=== PATIENT | female | born 1960 | race Two or more races ===

== ENCOUNTER 2019-08-02 12:10 | Inpatient (IN) | payer OTHER ==
[~2019-08-02 12:10] MED LIST: COZAAR100 MG PO; JENTADUETO 2.51 EACH PO; XANAX1 MG PO
[2019-08-03] MEDS ORDERED: HYDROCHLOROTHIA25 MG PO (07:59)
[2019-08-03] MEDS ORDERED: TRINTELLIX20 MG PO (07:59)
[2019-08-03] MEDS ORDERED: TRINTELLIX10 MG PO (08:04)
[2019-08-03] MEDS ORDERED: IBUPROFEN800 MG PO (09:29)
[2019-08-03] MEDS ORDERED: CODE1TAB37 PO (09:30)
== END 2019-08-03 10:28 | disposition home or self-care (01) | DRG 743 ==
LOC: CIR.AMB 12:10 → ADM 12:30 → CIR.AMB 12:30 → ADM 18:30 → SURG 18:34
PROVIDERS: ADMIT Obstetrics & Gynecology
PROC: 0UT54ZZ Resection of Right Fallopian Tube, Percutaneous Endoscopic Approach (ICD-10-PCS; 2019-08-02)
PROC: 0UDB8ZX Extraction of Endometrium, Via Natural or Artificial Opening Endoscopic, Diagnostic (ICD-10-PCS; 2019-08-02)
PROC: 0UT04ZZ Resection of Right Ovary, Percutaneous Endoscopic Approach (ICD-10-PCS; principal; 2019-08-02 18:30)
DX: N84.0 Polyp of corpus uteri (principal); N80.1 Endometriosis of ovary; N72 Inflammatory disease of cervix uteri; D27.0 Benign neoplasm of right ovary